=== PATIENT | male | born 1995 | race Caucasian/White ===

== ENCOUNTER 2020-05-10 13:20 | Emergency (ER) | payer SELFPAY ==
[~2020-05-10] VITALS: Ht 167.6 cm; Wt 90.9 kg
[2020-05-10 13:22] VITALS: BP 128/74
--- NOTE | 2020-05-10 13:31 | NUR ---
PT AMBULATED TO BED 12 WITH EVEN/STEADY GAIT
--- NOTE | 2020-05-10 13:35 | NUR ---
24 Y/O MALE C/O LAC WOUND TO LEFT LOWER FOREARM S/P FALL & ACCIDENTALLY CUT BY METAL BAR X LAST NIGHT. PT STATED IT HAPPENED 0200 WHILE DRINKING ETOH. LACERATION IS 1.5 INCH, NO LONGER BLEEDING AND SCABS PRESENT ON EDGES. RADIAL PULSES +2, CAP REFILL <3 SECONDS. PT DENIES PAIN/N/V. PT IS A/O X4 WITH EVEN AND UNLABORED RESPIRATIONS. PT SITTING IN CHAIR NEXT TO BED. WELSH SPEAKING. PMH: DENIES NKA
--- NOTE | 2020-05-10 13:43 | NUR ---
IRRIGATED LETF LOWER ARM WITH SALINE WITHOUT ANY ISSUES
--- NOTE | 2020-05-10 13:56 | NUR ---
DR GUALLPA AT BEDSIDE
[2020-05-10] MEDS ORDERED: BACITRACIN OINT 500 UNITS/GM PKT TP ONE (14:10)
[2020-05-10] MEDS ORDERED: IBUP-2213 PO (14:12)
[2020-05-10] MEDS ORDERED: BACI1PAC6 TP (14:12)
--- NOTE | 2020-05-10 14:21 | NUR ---
BACETRACIN AND STEERY STIPS APPLIED TO LEFT DISTAL ARM LACERATION AT 1417
[2020-05-10 15:02] VITALS: BP 128/74
--- NOTE | 2020-05-10 15:03 | NUR ---
Patient discharged with v/s stable. Written and verbal after care instructions given and explained. Patient alert, oriented and verbalized understanding of instructions. Ambulatory with steady gait. All questions addressed prior to discharge. ID band removed. Patient advised to follow up with PMD. Rx of BACITRACIN AND IBUPROFEN given. Patient educated on indication of medication including possible reaction and side effects. Opportunity to ask questions provided and answered.
== END 2020-05-10 15:03 | disposition home or self-care (01) ==
LOC: MED 13:20
DX: S51.812D Laceration without foreign body of left forearm, subsequent encounter (principal); W20.8XXD Other cause of strike by thrown, projected or falling object, subsequent encounter
CPT/HCPCS: 99282